=== PATIENT | female | born 1995 | race Two or more races ===

== ENCOUNTER 2021-02-10 09:38 | Emergency (ER) | payer SELFPAY ==
[~2021-02-10] VITALS: Ht 167.6 cm; Wt 95.3 kg
[2021-02-10 09:40] VITALS: BP 148/87
== END 2021-02-10 11:43 | disposition home or self-care (01) ==
LOC: ER 09:38
DX: J06.9 Acute upper respiratory infection, unspecified (principal); Z20.822 Contact with and (suspected) exposure to COVID-19
CPT/HCPCS: 36415; 71045; 87070; 87426; 87880

== ENCOUNTER 2021-04-19 07:59 | Emergency (ER) | payer OTHER, SELFPAY ==
[~2021-04-19] VITALS: Ht 167.6 cm; Wt 95.3 kg
[2021-04-19] MEDS ORDERED: ACETAMINOPHEN 500 MG TAB PO ONE (08:15)
[2021-04-19 08:37] LABS: Basophils # (auto) 0 10 ^3/uL (0-0.2); Basophils % (auto) 0.1 % (0.0-2.0); Eosinophils # (auto) 0 10 ^3/uL (0-0.8); Hematocrit 41.7 % (36.0-46.0); Hemoglobin 14.2 g/dL (12.2-16.2); Lymphocytes # (auto) 1.2 10 ^3/uL (0.4-5.4); Lymphocytes % (auto) 20.6 % (10.0-50.0); Mean Corpuscular Hemoglobin 29.3 pg (28.0-32.0); Mean Corpuscular Hgb Conc. 34.1 g/dL (32.0-36.0); Monocytes # (auto) 0.2 10 ^3/uL (0-1.3); Monocytes % (auto) 4.3 % (0.0-12.0); Neutrophils # (auto) 4.2 10 ^3/uL (1.6-8.6); Nucleated Red Blood Cells % 0.1 %; Red Blood Cells 4.85 10^6/uL (4.0-5.20); Red Cell Distribution Width 13.7 % (11.8-14.3); White Blood Cell 5.6 10^3/uL (4.4-10.8)
[2021-04-19 08:50] LABS: Albumin 3.2 g/dL (3.4-5.0); BUN/Creatinine Ratio 14.8; Calcium 8.3 mg/dL (8.5-10.1); Potassium 4.2 mmol/L (3.5-5.1)
[2021-04-19 08:53] LABS: Bilirubin, Total 0.3 mg/dL (0.2-1.0); Total Protein 7.6 g/dL (6.4-8.2)
[2021-04-19] MEDS ORDERED: ZINC SULFATE 220mg CAP or TAB PO ONE (09:15)
[2021-04-19] MEDS ORDERED: DexAMETHasone SOD PHOS 10MG/1ML VIAL INJ IV ONE (09:15)
[2021-04-19] MEDS ORDERED: ASCORBIC ACID 500 MG TAB PO ONE (09:15)
[2021-04-19] MEDS ORDERED: cefTRIAXone 1GM/50ML D5W 50 ML IV ONE (11:30)
[2021-04-19 12:01] VITALS: BP 110/77
== END 2021-04-19 12:09 | disposition home or self-care (01) ==
LOC: ER 07:59
DX: U07.1 COVID-19 (principal); J12.82 Pneumonia due to coronavirus disease 2019; Z88.1 Allergy status to other antibiotic agents
CPT/HCPCS: 36415; 71045; 80053; 82728; 83605; 85025; 87040; 87426; 96365; 96375; 99285; J0696; J1100